=== PATIENT | female | born 1950 | race American Indian/Alaskan Native ===

== ENCOUNTER 2020-01-27 02:11 | Emergency (ER) | payer MEDICAID, MEDICARE ==
[2020-01-27 02:33] VITALS: BP 188/85; PULSE 69
[2020-01-27] MEDS ORDERED: Polyethylene Glycol 3350 Powder 17 GM Packet PO ONE ×2 (02:44→05:24)
[2020-01-27] MEDS ORDERED: Bisacodyl 10 MG Supp RECTAL ONE (02:44)
--- NOTE | 2020-01-27 02:51 | EDM.PDOC ---
ED HPI GENERAL MEDICAL PROBLEM - General Chief Complaint: Gastrointestinal Problem Stated Complaint: MEDICAL VIA [facility] Time Seen by Provider: 01/27/20 02:40 Source of Information: Reports: Patient, Old Records, RN History Limitations: Reports: No Limitations - History of Present Illness INITIAL COMMENTS - FREE TEXT/NARRATIVE: 69 yo NA female presents via EMS from her home in [place] for constipation. No fever, bleeding, or vomiting. No distention. Tried oral Dulcolax one dose without results. Has Miralax at home. Onset: Gradual Duration: Day(s):, Getting Worse Location: Reports: Abdomen Quality: Reports: Other (some cramping at times) Severity: Mild Improves with: Reports: None Worsens with: Reports: Other (time) Context: Reports: Other (See HPI) Associated Symptoms: Reports: No Other Symptoms Treatments BRIM BLOCKER: Reports: Other (see below) (See HPI) Abdominal Pain Score (Numeric/FACES): 7 - Related Data Allergies Allergy/AdvReac Type Severity Reaction Status Date / Time ibuprofen Allergy Abdominal Verified 01/27/20 02:14 Cramps Home Meds: Home Meds Calcium Carbonate/Vitamin D3 [Calcium 600 + D3 Softgel] 1 each PO BID 03/12/16 [History] Docusate Sodium [Doc-Q-Lace] 100 mg PO BID 03/12/16 [History] Gabapentin [Neurontin] 600 mg PO BID 03/12/16 [History] Hydrochlorothiazide 25 mg PO DAILY 03/12/16 [History] Loratadine [Claritin] 10 mg PO BEDTIME PRN 03/12/16 [History] Meloxicam 15 mg PO DAILY 03/12/16 [History] Omeprazole 20 mg PO DAILY 03/12/16 [History] Sertraline [Zoloft] 200 mg PO DAILY 03/12/16 [History] Simethicone [Gas Relief] 180 mg PO ASDIRECTED PRN 03/12/16 [History] Triamcinolone Acetonide [Triamcinolone Acetonide 0.025%] 15 gm TOP BID 03/12/16 [History] lisinopriL [Prinivil] 10 mg PO DAILY 03/12/16 [History] Albuterol Sulfate [Albuterol Sulfate Hfa] 2 puff IN Q4H PRN 01/27/20 [History] Amitriptyline [Elavil] 25 mg PO BEDTIME 01/27/20 [History] Aspirin [Adult Low Dose Aspirin EC] 81 mg PO DAILY 01/27/20 [History] Cyclobenzaprine [Flexeril] 5 mg PO BID 01/27/20 [History] Escitalopram [Lexapro] 10 mg PO DAILY 01/27/20 [History] Fluticasone Propionate [Flonase] 2 spray IN DAILY 01/27/20 [History] Lisinopril/Hydrochlorothiazide [Zestoretic 20-25 mg Tablet] 1 tab PO DAILY 01/27/20 [History] Mag Hydrox/Aluminum Hyd/Simeth [Mintox Suspension] 15 ml PO Q4H PRN 01/27/20 [History] Nabumetone [Relafen] 500 mg PO BID 01/27/20 [History] Nicotine Polacrilex [Nicotine Gum] 1 dose PO ASDIRECTED 01/27/20 [History] Pramipexole [Mirapex] 0.25 mg PO BEDTIME 01/27/20 [History] amLODIPine [Norvasc] 5 mg PO DAILY 01/27/20 [History] atorvaSTATin [Lipitor] 40 mg PO DAILY 01/27/20 [History] hydrOXYzine HCL [Hydroxyzine HCl] 50 mg PO BEDTIME 01/27/20 [History] polyethylene glycoL 3350 [MiraLAX] 15 ml PO DAILY 01/27/20 [History] Past Medical History HEENT History: Reports: Allergic Rhinitis, Impaired Vision Cardiovascular History: Reports: Arrhythmia, Heart Murmur, High Cholesterol, Hypertension Gastrointestinal History: Reports: Cholelithiasis, Chronic Constipation, GERD Genitourinary History: Reports: UTI, 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: Musculoskeletal History: Reports: Arthritis, Back Pain, Chronic Other Musculoskeletal History: right kneee fluid removed Psychiatric History: Reports: Anxiety, Depression - Infectious Disease History Other Infectious Disease History: unknown - Past Surgical History GI Surgical History: Reports: Cholecystectomy Social & Family History - Tobacco Use Smoking Status *Q: Current Every Day Smoker Years of Tobacco use: 50 Packs/Tins Daily: 0.3 - Caffeine Use Caffeine Use: Reports: Coffee ED ROS GENERAL - Review of Systems Review Of Systems: See Below Constitutional: Reports: No Symptoms HEENT: Reports: No Symptoms Respiratory: Reports: No Symptoms Cardiovascular: Reports: No Symptoms GI/Abdominal: Reports: Abdominal Pain (mild intermittent cramping. ), Constipation. Denies: Black Stool, Bloody Stool, Diarrhea, Decreased Appetite, Distension, Flatus, Hematemesis, Hematochezia, Nausea, Vomiting : Reports: No Symptoms Musculoskeletal: Reports: No Symptoms Skin: Reports: No Symptoms Neurological: Reports: No Symptoms ED EXAM, GI/ABD - Physical Exam Exam: See Below Exam Limited By: No Limitations General Appearance: Alert, WD/WN, No Apparent Distress Eyes: Bilateral: Normal Appearance Ears: Normal External Exam, Normal Canal, Hearing Grossly Normal Nose: Normal Inspection, No Blood Throat/Mouth: Normal Inspection, Normal Lips, Normal Oropharynx, Normal Voice, No Airway Compromise Head: Atraumatic, Normocephalic Neck: Normal Inspection Respiratory/Chest: No Respiratory Distress, Lungs Clear, No Accessory Muscle Use Cardiovascular: Regular Rate, Rhythm, No Edema GI/Abdominal Exam: Normal Bowel Sounds, Soft, Non-Tender, No Distention Back Exam: Normal Inspection. No: CVA Tenderness (R), CVA Tenderness (L) Extremities: Normal Inspection, Normal Range of Motion, Non-Tender, No Pedal Edema Neurological: Alert, Oriented, CN II-XII Intact, Normal Cognition, No Motor/Sensory Deficits Psychiatric: Normal Affect, Normal Mood Skin Exam: Warm, Dry, Intact, Normal Color, No Rash Course - Vital Signs Last Recorded V/S: Last Vital Signs Temp 36.2 C 01/27/20 02:33 Pulse 69 01/27/20 02:33 Resp 18 01/27/20 02:33 BP 188/85 H 01/27/20 02:33 Pulse Ox 98 01/27/20 02:33 - Orders/Labs/Meds Meds: Medications Discontinued Medications Generic Name Dose Route Start Last Admin Trade Name Freq PRN Reason Stop Dose Admin Bisacodyl 10 mg 01/27/20 02:44 01/27/20 02:59 Dulcolax RECTAL 01/27/20 02:45 10 mg ONETIME ONE Administration Polyethylene Glycol 34 gm 01/27/20 02:44 01/27/20 02:56 Miralax PO 01/27/20 02:45 34 gm ONETIME ONE Administration Polyethylene Glycol 34 gm 01/27/20 05:24 01/27/20 05:36 Miralax PO 01/27/20 05:25 34 gm ONETIME ONE Administration Departure - Departure Time of Disposition: 07:00 Disposition: Home, Self-Care 01 Condition: Fair Clinical Impression: Constipation Qualifiers: Constipation type: slow transit constipation Qualified Code(s): K59.01 - Slow transit constipation - Discharge Information *PRESCRIPTION DRUG MONITORING PROGRAM REVIEWED*: Not Applicable *COPY OF PRESCRIPTION DRUG MONITORING REPORT IN PATIENT MACHELLE: Not Applicable Instructions: Chronic Constipation Referrals: PCP,None [Primary Care Provider] - Forms: ED Department Discharge Additional Instructions: Take Miralax twice daily until you have a bowel movement. After that you should take a dose of Miralax every day. Include more fiber in your diet and get more exercise. See your doctor as needed. Sepsis Event Note (ED) - Evaluation Sepsis Screening Result: No Definite Risk - Focused Exam Vital Signs: Vital Signs Temp Pulse Resp BP Pulse Ox 01/27/20 02:33 36.2 C 69 18 188/85 H 98
== END 2020-01-27 06:53 | disposition home or self-care (01) ==
LOC: JP.ED 02:11
DX: K59.01 Slow transit constipation (principal); E78.00 Pure hypercholesterolemia, unspecified; I10 Essential (primary) hypertension; K21.9 Gastro-esophageal reflux disease without esophagitis; F41.9 Anxiety disorder, unspecified; F32.9 Major depressive disorder, single episode, unspecified; F17.210 Nicotine dependence, cigarettes, uncomplicated; Z90.89 Acquired absence of other organs; Z88.8 Allergy status to other drugs, medicaments and biological substances; Z79.899 Other long term (current) drug therapy; Z79.82 Long term (current) use of aspirin
CPT/HCPCS: 99284; A9270

== ENCOUNTER 2020-08-15 11:18 | Emergency (ER) | payer MEDICARE, MEDICAID ==
[2020-08-15 11:24] VITALS: BP 170/71; PULSE 71
--- NOTE | 2020-08-15 11:54 | EDM.PDOC ---
ED HPI GENERAL MEDICAL PROBLEM - General Chief Complaint: Abdominal Pain Stated Complaint: ABD PAIN VIA NORTH Time Seen by Provider: 08/15/20 11:48 Source of Information: Reports: Patient, RN Notes Reviewed History Limitations: Reports: No Limitations - History of Present Illness INITIAL COMMENTS - FREE TEXT/NARRATIVE: 70-year-old female presents emergency department with complaint of abdominal pain she states her abdominal pain has started since last summer has been ongoing she does have a known history of chronic constipation she admits she is not been able to go to the bathroom over the last couple of days called EMS services for transport to the emergency department for further evaluation. Denies any fever nausea vomiting shortness of breath or chest pain abdominal Pain Score (Numeric/FACES): 8 - Related Data Allergies Allergy/AdvReac Type Severity Reaction Status Date / Time ibuprofen Allergy Abdominal Verified 08/15/20 11:34 Cramps Home Meds: Home Meds Calcium Carbonate/Vitamin D3 [Calcium 600 + D3 Softgel] 1 each PO BID 03/12/16 [History] Docusate Sodium [Doc-Q-Lace] 100 mg PO BID 03/12/16 [History] Gabapentin [Neurontin] 600 mg PO BID 03/12/16 [History] Loratadine [Claritin] 10 mg PO BEDTIME PRN 03/12/16 [History] Meloxicam 15 mg PO DAILY 03/12/16 [History] Omeprazole 20 mg PO DAILY 03/12/16 [History] Sertraline [Zoloft] 200 mg PO BEDTIME 03/12/16 [History] Simethicone [Gas Relief] 180 mg PO ASDIRECTED PRN 03/12/16 [History] Triamcinolone Acetonide [Triamcinolone Acetonide 0.025%] 15 gm TOP BID 03/12/16 [History] lisinopriL [Prinivil] 10 mg PO DAILY 03/12/16 [History] Albuterol Sulfate [Albuterol Sulfate Hfa] 2 puff IN Q4H PRN 01/27/20 [History] Amitriptyline [Elavil] 25 mg PO BEDTIME 01/27/20 [History] Aspirin [Adult Low Dose Aspirin EC] 81 mg PO DAILY 01/27/20 [History] Cyclobenzaprine [Flexeril] 5 mg PO BID 01/27/20 [History] Escitalopram [Lexapro] 20 mg PO BEDTIME 01/27/20 [History] Fluticasone Propionate [Flonase] 2 spray IN DAILY 01/27/20 [History] Lisinopril/Hydrochlorothiazide [Zestoretic 20-25 mg Tablet] 1 tab PO DAILY 01/27/20 [History] Mag Hydrox/Aluminum Hyd/Simeth [Mintox Suspension] 15 ml PO Q4H PRN 01/27/20 [History] Nabumetone [Relafen] 500 mg PO BID 01/27/20 [History] Nicotine Polacrilex [Nicotine Gum] 1 dose PO ASDIRECTED 01/27/20 [History] Pramipexole [Mirapex] 0.25 mg PO BEDTIME 01/27/20 [History] amLODIPine [Norvasc] 5 mg PO DAILY 01/27/20 [History] atorvaSTATin [Lipitor] 40 mg PO BEDTIME 01/27/20 [History] hydrOXYzine HCL [Hydroxyzine HCl] 50 mg PO BEDTIME 01/27/20 [History] polyethylene glycoL 3350 [MiraLAX] 15 ml PO DAILY 01/27/20 [History] Escitalopram [Lexapro] 30 mg PO DAILY 08/15/20 [History] Past Medical History HEENT History: Reports: Allergic Rhinitis, Impaired Vision Cardiovascular History: Reports: Arrhythmia, Heart Murmur, High Cholesterol, Hypertension Gastrointestinal History: Reports: Cholelithiasis, Chronic Constipation, GERD Genitourinary History: Reports: UTI, 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: Musculoskeletal History: Reports: Arthritis, Back Pain, Chronic Other Musculoskeletal History: right kneee fluid removed Psychiatric History: Reports: Anxiety, Depression - Infectious Disease History Other Infectious Disease History: unknown - Past Surgical History GI Surgical History: Reports: Cholecystectomy Social & Family History - Tobacco Use Tobacco Use Status *Q: Former Tobacco User Used Tobacco, but Quit: Yes Month/Year Tobacco Last Used: 6 - Caffeine Use Caffeine Use: Reports: Coffee - Recreational Drug Use Recreational Drug Use: No ED ROS GENERAL - Review of Systems Review Of Systems: See Below Constitutional: Reports: No Symptoms HEENT: Reports: No Symptoms Respiratory: Reports: No Symptoms Cardiovascular: Reports: No Symptoms GI/Abdominal: Reports: Abdominal Pain, Constipation, Flatus. Denies: Nausea, Vomiting : Reports: No Symptoms ED EXAM, GI/ABD - Physical Exam Exam: See Below Exam Limited By: No Limitations General Appearance: Alert, WD/WN, No Apparent Distress Respiratory/Chest: No Respiratory Distress, Lungs Clear, Normal Breath Sounds, No Accessory Muscle Use, Chest Non-Tender Cardiovascular: Regular Rate, Rhythm, No Murmur GI/Abdominal Exam: Soft, Non-Tender Course - Vital Signs Last Recorded V/S: Last Vital Signs Temp 98.0 F 08/15/20 11:20 Pulse 71 08/15/20 11:20 Resp 20 08/15/20 11:20 BP 170/71 H 08/15/20 11:20 Pulse Ox 98 08/15/20 11:20 - Orders/Labs/Meds Orders: Active Orders 24 hr Category Date Time Status Enema [RC] ASDIRECTED Care 08/15/20 13:20 Active Labs: Laboratory Tests 08/15/20 08/15/20 08/15/20 Range/Units 12:03 12:03 12:03 WBC 5.0 (4.5-11.0) K/uL RBC 4.24 (3.30-5.50) M/uL Hgb 12.0 (12.0-15.0) g/dL Hct 36.5 (36.0-48.0) % MCV 86 (80-98) fL MCH 28 (27-31) pg MCHC 33 (32-36) % Plt Count 290 (150-400) K/uL Neut % (Auto) 63 (36-66) % Lymph % (Auto) 26 (24-44) % [place] % (Auto) 10 H (2-6) % Eos % (Auto) 1 L (2-4) % Baso % (Auto) 0 (0-1) % Sodium 131 L (140-148) mmol/L Potassium 3.5 L (3.6-5.2) mmol/L Chloride 95 L (100-108) mmol/L Carbon Dioxide 26 (21-32) mmol/L Anion Gap 13.5 (5.0-14.0) mmol/L BUN 11 (7-18) mg/dL Creatinine 0.7 (0.6-1.0) mg/dL Est Cr Clr Drug Dosing 59.99 mL/min Estimated GFR (MDRD) > 60 (>60) Glucose 106 (74-106) mg/dL Lactic Acid 0.7 (0.4-2.0) mmol/L Calcium 9.1 (8.5-10.1) mg/dL Total Bilirubin 0.3 (0.2-1.0) mg/dL AST 18 (15-37) U/L ALT 26 (12-78) U/L Alkaline Phosphatase 107 (46-116) U/L Troponin I < 0.017 (0.000-0.056) ng/mL Total Protein 7.0 (6.4-8.2) g/dL Albumin 3.2 L (3.4-5.0) g/dL Globulin 3.8 H (2.3-3.5) g/dL Albumin/Globulin Ratio 0.8 L (1.2-2.2) Lipase 122 (73-393) U/L Meds: Medications Discontinued Medications Generic Name Dose Route Start Last Admin Trade Name Freq PRN Reason Stop Dose Admin Magnesium Citrate 296 ml 08/15/20 13:20 08/15/20 13:28 Magnesium Citrate Solution 296 Ml Bottle PO 08/15/20 13:21 296 ml ONETIME ONE Administration Departure - Departure Time of Disposition: 14:30 Disposition: Home, Self-Care 01 Condition: Fair Clinical Impression: Constipation Qualifiers: Constipation type: slow transit constipation Qualified Code(s): K59.01 - Slow transit constipation - Discharge Information Instructions: Chronic Constipation Referrals: Domenic Hunter MD [Primary Care Provider] - Forms: ED Department Discharge Additional Instructions: Continue using your MiraLAX at home, please followup with your primary care provider in 3-5 days if not better, please call return to the emergency department with worsening of symptoms. Sepsis Event Note (ED) - Evaluation Sepsis Screening Result: No Definite Risk - Focused Exam Vital Signs: Vital Signs Temp Pulse Resp BP Pulse Ox 08/15/20 11:20 98.0 F 71 20 170/71 H 98 - My Orders Last 24 Hours: My Active Orders 08/15/20 13:20 Enema [RC] ASDIRECTED - Assessment/Plan Last 24 Hours: My Active Orders 08/15/20 13:20 Enema [RC] ASDIRECTED Plan: Assessment Acuity = acute on chronic Site and laterality = functional constipation Etiology = slow transit time Manifestations = abdominal pain Location of injury = Home Lab values = CBC CMP unremarkable plain film of the abdomen shows moderate diffuse colonic stool retention Plan Good success combination mag citrate and mineral oil enema follow-up primary care 3 to 5 days for further evaluation This note was dictated using [employer] voice recognition software please call with any questions on syntax or grammar.
--- NOTE | 2020-08-15 13:10 | CRLCR ---
INDICATION: Abdominal pain TECHNIQUE: Abdomen 1 view. COMPARISON: None FINDINGS: Bowel: Bowel pattern is normal. Diffuse colonic fecal retention Soft tissues: No sign of free air. No sign of soft tissue mass. No suspicious calcifications. Surgical clips right upper quadrant. Bones: Scoliosis thoracolumbar spine. IMPRESSION: Diffuse colonic fecal retention. Dictated by Lul Vasquez MD @ 08/15/2020 1:09:06 PM Dictated by: Lul Vasquez MD @ 08/15/2020 13:09:13 (Electronically Signed)
[2020-08-15] MEDS ORDERED: Magnesium Citrate Solution 296 ML Bottle PO ONE (13:20)
== END 2020-08-15 14:55 | disposition home or self-care (01) ==
LOC: JP.ED 11:18
DX: K59.01 Slow transit constipation (principal); E78.00 Pure hypercholesterolemia, unspecified; I10 Essential (primary) hypertension; K21.9 Gastro-esophageal reflux disease without esophagitis; M19.90 Unspecified osteoarthritis, unspecified site; Z87.891 Personal history of nicotine dependence; Z88.6 Allergy status to analgesic agent; Z79.82 Long term (current) use of aspirin; Z79.899 Other long term (current) drug therapy
CPT/HCPCS: 36415; 74018; 80053; 83605; 83690; 84484; 85025; 99283; 99284; A9270

== ENCOUNTER 2020-08-31 14:45 | Emergency (ER) | payer MEDICAID ==
--- NOTE | 2020-08-31 15:29 | EDM.PDOC ---
ED HPI GENERAL MEDICAL PROBLEM - General Chief Complaint: Abdominal Pain Stated Complaint: MEDICAL Time Seen by Provider: 08/31/20 15:26 Source of Information: Reports: Patient, RN Notes Reviewed History Limitations: Reports: No Limitations - History of Present Illness INITIAL COMMENTS - FREE TEXT/NARRATIVE: 70-year-old female presents emergency department day complaint of abdominal pain, she has known history of chronic constipation was evaluated in the emergency department last week same complaint did have an enema that time which was successful. She states she had diarrhea this morning but feels like she still constipated, no nausea vomiting shortness of breath or chest pain - Related Data Allergies Allergy/AdvReac Type Severity Reaction Status Date / Time ibuprofen Allergy Abdominal Verified 08/31/20 14:52 Cramps Home Meds: Home Meds Docusate Sodium [Doc-Q-Lace] 100 mg PO BID 03/12/16 [History] Gabapentin [Neurontin] 600 mg PO BID 03/12/16 [History] Meloxicam 15 mg PO DAILY 03/12/16 [History] Omeprazole 20 mg PO DAILY 03/12/16 [History] Sertraline [Zoloft] 200 mg PO BEDTIME 03/12/16 [History] Simethicone [Gas Relief] 180 mg PO ASDIRECTED PRN 03/12/16 [History] Triamcinolone Acetonide [Triamcinolone Acetonide 0.025%] 15 gm TOP BID 03/12/16 [History] Aspirin [Adult Low Dose Aspirin EC] 81 mg PO DAILY 01/27/20 [History] Escitalopram [Lexapro] 20 mg PO BEDTIME 01/27/20 [History] Fluticasone Propionate [Flonase] 2 spray IN DAILY 01/27/20 [History] Lisinopril/Hydrochlorothiazide [Zestoretic 20-25 mg Tablet] 1 tab PO DAILY 01/27/20 [History] Mag Hydrox/Aluminum Hyd/Simeth [Mintox Suspension] 15 ml PO Q4H PRN 01/27/20 [History] Nicotine Polacrilex [Nicotine Gum] 1 dose PO ASDIRECTED 01/27/20 [History] Pramipexole [Mirapex] 0.25 mg PO BEDTIME 01/27/20 [History] amLODIPine [Norvasc] 5 mg PO DAILY 01/27/20 [History] atorvaSTATin [Lipitor] 40 mg PO BEDTIME 01/27/20 [History] hydrOXYzine HCL [Hydroxyzine HCl] 50 mg PO BEDTIME 01/27/20 [History] polyethylene glycoL 3350 [MiraLAX] 15 ml PO DAILY 01/27/20 [History] Escitalopram [Lexapro] 30 mg PO DAILY 08/15/20 [History] Past Medical History HEENT History: Reports: Allergic Rhinitis, Impaired Vision Cardiovascular History: Reports: Arrhythmia, Heart Murmur, High Cholesterol, Hypertension Gastrointestinal History: Reports: Cholelithiasis, Chronic Constipation, GERD Genitourinary History: Reports: UTI, 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: Musculoskeletal History: Reports: Arthritis, Back Pain, Chronic Other Musculoskeletal History: right kneee fluid removed Psychiatric History: Reports: Anxiety, Depression - Infectious Disease History Other Infectious Disease History: unknown - Past Surgical History GI Surgical History: Reports: Cholecystectomy Social & Family History - Tobacco Use Tobacco Use Status *Q: Never Tobacco User - Caffeine Use Caffeine Use: Reports: Coffee ED ROS GENERAL - Review of Systems Review Of Systems: See Below Constitutional: Reports: No Symptoms Respiratory: Reports: No Symptoms Cardiovascular: Reports: No Symptoms GI/Abdominal: Reports: Abdominal Pain, Diarrhea. Denies: Nausea, Vomiting ED EXAM, GI/ABD - Physical Exam Exam: See Below Exam Limited By: No Limitations General Appearance: Alert, WD/WN, No Apparent Distress Respiratory/Chest: No Respiratory Distress GI/Abdominal Exam: Soft, Non-Tender Course - Vital Signs Last Recorded V/S: Last Vital Signs Temp 96.8 F L 08/31/20 14:57 Pulse 64 08/31/20 18:03 Resp 14 08/31/20 14:57 BP 182/79 H 08/31/20 18:03 Pulse Ox 96 08/31/20 18:03 - Orders/Labs/Meds Orders: Active Orders 24 hr Category Date Time Status Enema [RC] ASDIRECTED Care 08/31/20 17:10 Active Abdomen 1V Upright [CR] Stat Exams 08/31/20 15:29 Taken Departure - Departure Time of Disposition: 18:52 Disposition: Home, Self-Care 01 Condition: Fair Clinical Impression: Constipation Qualifiers: Constipation type: slow transit constipation Qualified Code(s): K59.01 - Slow transit constipation - Discharge Information Instructions: Chronic Constipation Referrals: PCP,None [Primary Care Provider] - Forms: ED Department Discharge Additional Instructions: Continue with MiraLAX, please followup with your primary care provider in 3-5 days if not better, please call return to the emergency department with worsening of symptoms. Sepsis Event Note (ED) - Evaluation Sepsis Screening Result: No Definite Risk - Focused Exam Vital Signs: Vital Signs Temp Pulse Resp BP Pulse Ox 08/31/20 18:03 64 182/79 H 96 08/31/20 14:57 96.8 F L 68 14 166/64 H 97 - My Orders Last 24 Hours: My Active Orders 08/31/20 15:29 Abdomen 1V Upright [CR] Stat 08/31/20 17:10 Enema [RC] ASDIRECTED - Assessment/Plan Last 24 Hours: My Active Orders 08/31/20 15:29 Abdomen 1V Upright [CR] Stat 08/31/20 17:10 Enema [RC] ASDIRECTED Plan: Assessment Acuity = acute Site and laterality = functional constipation Etiology = slow transit time Manifestations = none Location of injury = Home Lab values = plain film does show stool and gas Plan Good success with enema provided in the emergency department primary care as n eeded This note was dictated using [employer] voice recognition software please call with any questions on syntax or grammar.
[2020-08-31 18:19] VITALS: BP 182/79; PULSE 64
--- NOTE | 2020-09-03 08:58 | CR ---
Abdomen 1V Upright CLINICAL HISTORY: Distention FINDINGS: No free air is identified. Small intestinal gas pattern is nonspecific. There is been significant reduction in the amount of stool seen throughout the colon on prior study. IMPRESSION: Decrease in fecal retention compared to prior study
== END 2020-08-31 19:09 | disposition home or self-care (01) ==
LOC: JP.ED 14:45
DX: K59.01 Slow transit constipation (principal); I10 Essential (primary) hypertension; K21.9 Gastro-esophageal reflux disease without esophagitis; M19.90 Unspecified osteoarthritis, unspecified site; E78.00 Pure hypercholesterolemia, unspecified; Z79.82 Long term (current) use of aspirin; Z79.899 Other long term (current) drug therapy; Z88.6 Allergy status to analgesic agent
CPT/HCPCS: 74018; 74018-26; 99282; 99284

== ENCOUNTER 2020-10-08 09:03 | Day surgery (SDC) | payer MEDICARE, MEDICAID ==
[~2020-10-08 09:03] MED LIST: Dextrose 5%-Lactated Ringers 1,000 ML IV SCH
[2020-10-08] MEDS ORDERED: Propofol 200 MG/20 ML SDV ONE (09:10)
[2020-10-08] MEDS ORDERED: Midazolam 1 MG/ML 2 ML SDV ONE (09:10)
[2020-10-08] MEDS ORDERED: fentaNYL 100 MCG/2 ML SDV ONE (09:10)
[2020-10-08] MEDS ORDERED: Sodium Chloride 0.9% 1,000 ML IV SCH (10:00)
[2020-10-08 11:54] VITALS: PULSE 63
[2020-10-08 12:14] VITALS: BP 206/93
--- NOTE | 2020-10-08 15:53 | OR ---
DATE OF PROCEDURE: 10/08/2020 SURGEON: Freddy Pruitt MD PROCEDURE: Colonoscopy. FINDINGS: Poor colon prep. COMPLICATIONS: None. MASTER WELDER: None. ANESTHESIA: MAC. PREOPERATIVE DIAGNOSIS: Gastrointestinal bleeding. POSTOPERATIVE DIAGNOSIS: Gastrointestinal bleeding. RISKS: Risks, benefits, alternatives, and limitations including, but not limited to infection, bleeding, perforation, false positives, and false negatives were explained to the patient and they wished to proceed. PROCEDURE IN DETAIL: The patient was placed in left lateral decubitus position. Digital rectal exam was performed without abnormality. Scope was introduced atraumatically in the ileocecal valve. A photo was taken. The scope was brought back to the ascending, transverse, descending colon, and retroflexed. The prep was inadequate with large amount of solid and liquid stool remaining. Less than 40% luminal surface could be seen. No abnormalities were noted. The scope was returned and retroflexed. The patient tolerated the procedure well and will be scheduled for repeat colonoscopy with longer prep. Freddy Pruitt MD /[id number]
== END 2020-10-08 12:17 | disposition home or self-care (01) ==
LOC: JP.SDS 09:03
PROVIDERS: ATTEND Surgery
DX: K92.2 Gastrointestinal hemorrhage, unspecified (principal); I10 Essential (primary) hypertension; K21.9 Gastro-esophageal reflux disease without esophagitis; Z88.8 Allergy status to other drugs, medicaments and biological substances
CPT/HCPCS: J2250; J2704; J3010; J7030

== ENCOUNTER 2021-03-04 06:33 | Day surgery (SDC) | payer MEDICARE ==
[2021-03-04] MEDS ORDERED: Sodium Chloride 0.9% 1,000 ML IV SCH (07:00)
[2021-03-04] MEDS ORDERED: fentaNYL 100 MCG/2 ML SDV ONE (07:21)
[2021-03-04] MEDS ORDERED: Propofol 200 MG/20 ML SDV ONE (07:22)
[2021-03-04] MEDS ORDERED: Midazolam 1 MG/ML 2 ML SDV ONE (07:22)
[2021-03-04 08:53] VITALS: PULSE 53
[2021-03-04 09:16] VITALS: BP 160/78
--- NOTE | 2021-03-06 12:21 | OR ---
DATE OF PROCEDURE: 03/04/2021 SURGEON: Freddy Pruitt MD PROCEDURE: Colonoscopy. FINDINGS: Normal colonoscopy. PREOPERATIVE DIAGNOSIS: Constipation. POSTOPERATIVE DIAGNOSIS: Constipation. COMPLICATIONS: None. DIRECTOR OF MEDICARE: None. ANESTHESIA: MAC. RISKS: Risks, benefits, alternatives, and limitations including, but not limited to infection, bleeding, perforation, false positives and false negatives were explained to the patient and she wished to proceed. PROCEDURE IN DETAIL: The patient was placed in left lateral decubitus position. Digital rectal exam was performed without abnormality. Scope was introduced and advanced atraumatically to the ileocecal valve. A photo was taken of the appendiceal orifice. Scope was brought back to the ascending, transverse, descending colon, and retroflexed. No evidence of old or new blood. No masses. No polyps. No diverticulosis. No colitis. No abnormalities on retroflexion. Greater than 8 minutes was spent removing the scope. Prep was acceptable, approximately 90% of the luminal surface could be seen. The patient tolerated the procedure well. Freddy Pruitt MD /[id number]
== END 2021-03-04 09:30 | disposition home or self-care (01) ==
LOC: JP.SDS 06:33
PROVIDERS: ATTEND Surgery
DX: K59.00 Constipation, unspecified (principal); I10 Essential (primary) hypertension; F17.200 Nicotine dependence, unspecified, uncomplicated; K21.9 Gastro-esophageal reflux disease without esophagitis; Z88.8 Allergy status to other drugs, medicaments and biological substances
CPT/HCPCS: 45378; J2250; J2704; J3010; J7030